=== PATIENT | female | born 1995 | race Caucasian/White ===

== ENCOUNTER 2018-02-13 13:39 | Emergency (ER) | payer OTHER ==
[2018-02-13] MEDS ORDERED: NS 0.9% 1000 ML* 1,000 ML IV ONE (14:06)
--- NOTE | 2018-02-13 14:22 | ED ---
Syncope/Near Syncope - HPI Summary HPI Summary: This patient is a 22 year old F presenting to [facility] accompanied by her friends with a chief complaint of syncope and possible seizure activity that occurred this morning. Pt states she was lying in her bed and looking at her phone when she lost vision and began having bilateral tremors. Pt states she could feel both sides of her body shaking, this episode lasted a few minutes. As soon as the episode ended she ran into the living room and told her roommate what happened. Her roommate is present and states that the patient was AxO x3, was flustered, and shaking. Patient states that she did not feel the episode coming on, she denies general malaise and tunnel vision. The patient rates the pain 0/ 10 in severity. Patient denies drug/etoh use and . Hx chronic lymes and anemia. No hx of seizure. - History Of Current Complaint Chief Complaint: EDSyncope Time Seen by Provider: 02/13/18 13:58 Hx Obtained From: Patient Onset/Duration: Lasting Minutes, Resolved Timing: Intermittent Episode Lasting Context: Unwitnessed Activity At Onset: At Rest Associated Head Trauma: No Alleviating Factor(s): Spontaneous Resolution Associated Signs And Symptoms: Other - near LOC and tremors - Allergies/Home Medications Allergies/Adverse Reactions: Allergies Allergy/AdvReac Type Severity Reaction Status Date / Time nickel Allergy Mild Itching Verified 02/13/18 14:26 Home Medications: Home Medications Amphetamine MIXED SALTS TAB* [Adderall TAB*] 30 mg PO DAILY 02/13/18 [History Confirmed 02/13/18] PMH/Surg Hx/FS Hx/Imm Hx Endocrine/Hematology History: Reports: Other Endocrine/Hematological Disorders - lymes Cardiovascular History: Reports: Other Cardiovascular Problems/Disorders - anemia Denies: Hx Angina, Hx Cardiac Arrest, Hx Cardiomegaly Respiratory History: Denies: Hx Chronic Obstructive Pulmonary Disease (COPD), Hx Pleural Effusion , Hx Pulmonary Edema, Hx Sleep Apnea GI History: Denies: Hx Gastroesophageal Reflux Disease, Hx Gastrointestinal Bleed Neurological History: Denies: Hx Seizures, Hx Spinal Cord Injury, Hx Transient Ischemic Attacks ( TIA) Infectious Disease History: No Infectious Disease History: Denies: Traveled Outside the [place] in Last 30 Days - Family History Known Family History: Negative: Respiratory Disease, Seizure Disorder, Blood Disorder - Social History Occupation: Student Lives: Dormitory/Roommates Alcohol Use: Weekly Hx Substance Use: No Substance Use Type: Reports: None Hx Tobacco Use: No Smoking Status (MU): Never Smoked Tobacco Review of Systems Positive: Other - vision loss Positive: Other - tremors Positive: Syncope - near All Other Systems Reviewed And Are Negative: Yes Physical Exam - Summary Physical Exam Summary: Appearance: Well appearing, no pain distress Skin: warm, dry, reflects adequate perfusion Head/face: normal Eyes: EOMI, NICOLE ENT: normal Neck: supple, non-tender Respiratory: CTA, breath sounds present Cardiovascular: RRR, pulses symmetrical Abdomen: non-tender, soft Bowel Sounds: present Musculoskeletal: normal, strength/ROM intact Neuro: normal, sensory motor intact, A&Ox3 Triage Information Reviewed: Yes Vital Signs On Initial Exam: Initial Vitals Temp Pulse Resp BP Pulse Ox 98.2 F 103 14 124/82 98 02/13/18 13:50 02/13/18 13:50 02/13/18 13:50 02/13/18 13:50 02/13/18 13:50 Vital Signs Reviewed: Yes Diagnostics - Vital Signs Vital Signs Temp Pulse Resp BP Pulse Ox 02/13/18 13:50 98.2 F 103 14 124/82 98 - Laboratory Result Diagrams: 02/13/18 14:19 02/13/18 14:19 Lab Statement: Any lab studies that have been ordered have been reviewed, and results considered in the medical decision making process. - EKG 14:19 Cardiac Rate: NL EKG Rhythm: Sinus Rhythm - at [address] Segment: Normal EKG Interpretation: nml intervals, nml axis Re-Evaluation - Re-Evaluation First Eval Re-Evaluation Time: 15:14 Change: Improved Comment: Pt has greatly improved with IV fluids and is ready to go home. Course/Dx Course Of Treatment: Patient describes an episode of graying out without definite loss of consciousness and tremoring bilaterally. She return immediately to normal consciousness with some anxiety. It is unknown if this was exacerbated by anxiety. She is not found to be , anxious or have arrhythmia. She was hydrated here and feeling much better. She walked in the ER with resolution of symptoms. Discharged with friends. - Diagnoses Differential Diagnosis/HQI/PQRI: Positive: Hyperventilation, Hypoglycemia, Metabolic Reaction, Seizure, Vasovagal Episode Provider Diagnoses: Near syncope Discharge - Sign-Out/Discharge Documenting (check all that apply): Patient Departure - Discharge Plan Condition: Improved Disposition: HOME Patient Education Materials: Near Syncope (ED) Referrals: [facility] [Provider Group] Additional Instructions: Drink lots of fluids. Avoid the heat. Return if worse, repeat symptoms, new symptoms, or other concerns as discussed. - Billing Disposition and Condition Condition: IMPROVED Disposition: Home - Attestation Statements Document Initiated by Scribe: Yes Documenting Scribe: Scott Montesinos Provider For Whom Scribe is Documenting (Include Credential): Apolinar Abebe MD Scribe Attestation: Scott Lord , scribed for Apolinar Abebe MD on 02/13/18 at 1755. Scribe Documentation Reviewed: Yes Provider Attestation: The documentation as recorded by the Scott mullins accurately reflects the service I personally performed and the decisions made by me, Apolinar Abebe MD
[2018-02-13 14:39] LABS: ABS Basophils 0.1 10^3/ul (0-0.2); ABS Eosinophils 0.1 10^3/ul (0-0.6); ABS Lymphocytes 1.3 10^3/ul (1.0-4.8); ABS Monocytes 0.3 10^3/ul (0-0.8); ABS Nucleated RBC 0 10^3/ul; Eosinophil % 0.9 % (0-6); Hematocrit 37 % (35-47); Hemoglobin 12.8 g/dl (12.0-16.0); Mean Corpuscular HGB Conc 34 g/dl (31-36); Mean Corpuscular Hemoglobin 32 pg (27-31); Mean Corpuscular Volume 94 fL (80-97); Mean Platelet Volume 7.1 um3 (7.4-10.4); Nucleated Red Blood Cells % 0; Platelet Count 250 10^3/ul (150-450); Red Blood Count 3.98 10^6/ul (4.00-5.40); Red Cell Distribution Width 13 % (10.5-15); White Blood Count 5.7 10^3/ul (3.5-10.8)
[2018-02-13 14:52] LABS: EGFR Non-African American 100.6 (>60)
[2018-02-13 16:07] VITALS: BP 110/67
== END 2018-02-13 16:06 | disposition home or self-care (01) ==
LOC: ED 13:39
DX: R55 Syncope and collapse (principal)
CPT/HCPCS: 36415; 80048; 83735; 84100; 84702; 85025; 93005; 96360; 99281